=== PATIENT | male | born 1995 | race Caucasian/White ===

== ENCOUNTER 2018-09-13 22:35 | Emergency (ER) | payer OTHER ==
[2018-09-13 22:38] VITALS: BP 139/85
--- NOTE | 2018-09-13 22:51 | ER Report ---
History and Physical Time Seen By MD: 22:44 Hx. of Stated Complaint: GOT POKED BY A NEEDLE AFTER A BLOOD SUGAR TEST. 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 Patient states he washed the puncture wound site for 5 minutes. Allergies: Coded Allergies: No Known Drug Allergies (Unverified , 09/13/18) Home Meds No Active Prescriptions or Reported Meds Reviewed Nurses Notes: Yes Old Medical Records Reviewed: Yes Hx Substance Use Disorder: No Hx Alcohol Use: No Constitutional Vital Sign - Last 24 Hours 09/13/18 22:38 Temp 98.0 Pulse 53 Resp 12 B/P (MAP) 139/85 Pulse Ox 96 O2 Delivery Room Air Physical Exam General appearance: Alert no distress. Respiratory: Chest is non tender, lungs are clear to auscultation. Cardiac: Regular rate and rhythm Extremities: There is a tiny puncture wound noted on the right ring finger, neurovascular function intact DIFFERENTIAL DIAGNOSIS: After history and physical exam differential diagnosis was considered for body fluid exposure, needlestick injury Medical Decision Making Data Points Laboratory Hematology Test 09/13/18 23:05 HIV (1&2) Antibody Negative (NEGATIVE) Chemistry Test 09/13/18 23:05 HIV (1&2) Antibody Negative (NEGATIVE) ED Course/Re-evaluation ED Course Patient was admitted to an examination room. H&P was done. The differential diagnoses was considered. Risk of the source patient was discussed with the patient. Post exposure prophylaxis was discussed. The patient elected not to proceed. Patient's baseline serologies were drawn. He is advised to follow-up with his workers comp provider. They're going to seek blood from the source patient. Decision to Disposition Date: Sep 13, 2018 Decision to Disposition Time: 22:49 Depart Departure Latest Vital Signs Vital Signs Date Time Temp Pulse Resp B/P (MAP) Pulse Ox O2 Delivery O2 Flow Rate FiO2 09/13/18 22:38 98.0 53 12 139/85 96 Room Air Impression: Primary Impression: Needle stick injury of finger Condition: Improved Disposition: HOME OR SELF-CARE New Scripts No Active Prescriptions or Reported Meds Patient Instructions: Body Substance Exposure (ED) Additional Instructions: Follow-up with your worker provider for repeat blood work at 6 weeks and 6 months unless a source patient blood work returns negative Problem Qualifiers Primary Impression: Needle stick injury of finger Encounter type: initial encounter Qualified Codes: S61.239A - Puncture wound without foreign body of unspecified finger without damage to nail, initial encounter; W27.3XXA - Contact with needle (sewing), initial encounter VIGNESH DENT DO Sep 13, 2018 22:51
== END 2018-09-13 23:20 | disposition home or self-care (01) ==
LOC: ER 23:15
DX: S61.234A Puncture wound without foreign body of right ring finger without damage to nail, initial encounter (principal); W45.8XXA Other foreign body or object entering through skin, initial encounter
CPT/HCPCS: 36415; 86703; 86706; 86803; 87340; 99282